=== PATIENT | female | born 1985 | race Caucasian/White ===

== ENCOUNTER 2023-09-05 08:30 | Outpatient (RCR) | payer OTHER, SELFPAY ==
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
--- NOTE | 2023-06-19 11:51 | OPREHPOC ---
Outpatient Therapy Plan of Care This is a Multidisciplinary Plan of Care that may contain components documented by all disciplines (PT, OT, and ST.) PT Problem 1 PT Problem #1 Knowledge Deficit PT Goal 1 Goal Pt will be independent in HEP Pt will verbalize understanding of diagnosis and prognosis Target Visit 8 PT Problem 2 PT Problem #2 Pain PT Goal 1 Goal Pt will report greatest pain level at shoulder 6/ 10 or less to improve ADLs and activities Target Visit 8 PT Goal 2 Goal Pt will report greatest pain level at shoulder 3/ 10 or less to improve ADLs and activities Target Visit 12 PT Problem 3 PT Problem #3 Impaired Sensation PT Goal 1 Goal Pt will report centralization of pain/radicular symptoms Target Visit 8 PT Problem 4 PT Problem #4 Impaired Range of Motion PT Goal 1 Goal Pt will demo equal ROM RUE to LUE with minimal to no pain Target Visit 12 PT Goal 2 Goal Pt will demo equal cervical ROM bilat with rotation and lateral flexion Target Visit 12
--- NOTE | 2023-09-05 16:12 | PTOPEVAL1 ---
Assessment and note entered by Eunice Rondon, PT Re-Eval Information Assessment Status Progress Diagnosis pain in left shoulder Subjective Information Pt reports she was having increased pain last after the therapy session and could not get comfortable. states it felt like somebody is stabbing her on the back and very isolated to in between R shoulder blade and spine. Cuddling with her kid last weekend was limited due to the back pain. Today, she felt a little better but felt like something is pinched along her thoracic spine this morning. She states she is excited because she has more movement to her RUE already and gaining strength, however, she is still experiencing numbness to R arm with certain movements. She wants to continue receiving PT due to continued experiencing radicular symptoms. Reported Pain Level Pain Score 4: Self Report Assessment PT Clinical Summary Pt demos improved progress with ROM and strength, noted reduction in pain, however still c/o numbness and radicular symptoms to R UE; will benefit from continued skilled PT to resolve pain and guidance on proper body mechanics, HEPs to improve carryover post DC. Plan of Care Interventions Electrical Stimulation,Hot Pack/Cold Pack,Manual Therapy,Mechanical Traction,Neuro Re-education, Patient/Caregiver Education,Therapeutic Activities, Therapeutic Exercise,Self-Care/Home Management, Ultrasound, I[facility] PT Services Indicated Yes Treatment Frequency and 1-2x/wk x 6 visits Duration These treatments will address the objective and functional deficits as defined above. The patient will be advanced safely and appropriately in order for the patient to progress towards his/her prior level of function. Additional exercises will be introduced and as well as a comprehensive home exercise program upon discharge, if needed, ?to ensure carryover of functional gains achieved in the clinic. This treatment plan has been reviewed and agreement upon by the patient.
--- NOTE | 2023-09-19 08:16 | PCPTNOTE ---
Admitting Provider: Attending Provider: Dylon Izquierdo MD Patient:Rosalva Shay Date of :1985 Patient has not returned for any further treatments since 09/05/2023 due to insurance denial for further visits, therefore she will be discharged at this time. Patient?s initial visit was on 06/19/2023 10:30 and she had a total of 12 visits. Pt was called and informed of discharge due to insurance coverage. The goals have not been met Thank you for referring this patient to [facility]. Please review, sign, date and return this discharge summary JAMEE. I have been updated about the patient's current status and I agree with discharge from the above service at this time. Referring Physician Date
== END 2023-09-17 23:59 | disposition home or self-care (01) ==
LOC: ANHHIPT 08:30
PROVIDERS: PCP Family Medicine; Visit Provider Family Medicine
DX: M25.512 Pain in left shoulder (principal)
CPT/HCPCS: 97014; 97035; 97110; 97112; 97140; 97162; 97530; 97750; G0283